=== PATIENT | male | born 1965 | race Caucasian/White ===

== ENCOUNTER → 2016-09-17 | Outpatient (CLI) | payer OTHER | LOC: ULTRA 07:48 | DX: K76.89 Other specified diseases of liver (principal); R14.0 Abdominal distension (gaseous) ==

== ENCOUNTER → 2016-10-29 | Outpatient (CLI) | payer BC | LOC: NUC 07:50 | DX: R10.11 Right upper quadrant pain (principal); R14.0 Abdominal distension (gaseous) ==

== ENCOUNTER → 2017-05-11 | Outpatient (CLI) | payer BC | LOC: RAD 10:07 | DX: R06.02 Shortness of breath (principal) ==

== ENCOUNTER → 2018-07-29 | Outpatient (CLI) | payer BC | LOC: RAD 11:20 | DX: R06.00 Dyspnea, unspecified (principal); R05 Cough ==

== ENCOUNTER → 2018-09-12 | Outpatient (CLI) | payer BC ==
--- NOTE | 2018-09-14 22:34 | SLE ---
[facility] [place] [address] POLYSOMNOGRAPHY STUDY Name: KEVEN BARKLEY Room #: REG [facility] M.R.#: [id number] Admission: 09/12/18 ������������������ Attend Phys: Miller Sotelo MD Discharge: ������������������ Date of : 65 Report #: [id number] THIS REPORT FOR: //name// CC: Miller Gomez MD DATE OF SERVICE: 09/12/2018 SLEEP STUDY ATTENDING PHYSICIAN: Dr. John Gomez. The patient is 53 years old who weighs 205 pounds with a BMI of 27.8. The patient has history of sleep apnea diagnosed in 2016. His AHI was 18 per hour. He has been on auto CPAP since then; however, he has been noted to have persistent daytime fatigue and somnolence. Review of the download data has revealed that his AHI has been less than 2. He averages about 5-1/2 hours of sleep. The patient was also taking Fioricet on a p.r.n. basis and Adderall. They were stopped few weeks prior to the study. The patient also underwent MSLT the next day. Results of the night sleep while on auto CPAP was discussed here. During the night of study, the patient spent 473 minutes in bed and slept for 360 minutes with a sleep efficiency of 76%. Sleep latency was 12 minutes with a REM latency of 162 minutes. Overall, sleep architecture showed normal stage 1 and stage 2 sleep, absent N3 sleep and increased REM sleep which was 33% of the total sleep time. During the night of the study, the patient slept on auto CPAP at a pressure of 5-20 cm of water. However, his pressure range during the night was 5-12. His AHI for the entire night was 1.5 per hour. REM AHI was 1 per hour and supine AHI was 0.9 per hour. EKG monitoring revealed an average heart rate of 61 beats per minute. No sustained arrhythmias observed. Maximum heart rate 93 beats per minute. PLMS were seen at an index of 6 per hour and 2 per hour caused EEG arousals. Nocturnal oximetry study revealed an average oxygen saturation of 97% with lowest of 82%. No clinically significant persistent desaturations of less than 89% were observed. Only 0.1 minutes were spent in oxygen saturation of less than 89%. IMPRESSION: 1. Sleep apnea diagnosed previously. [address] [address] POLYSOMNOGRAPHY STUDY Name: KEVEN BARKLEY Room #: REG DEV Samuel#: [id number] Admission: 09/12/18 ������������������ Attend Phys: Miller Sotelo MD Discharge: ������������������ Date of : 65 Report #: [id number] 2. No clinically significant periodic limb movements of sleep. 3. No clinically significant nocturnal hypoxia. 4. 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 RECOMMENDATIONS: 1. The patient's auto CPAP is effective in treating the patient's sleep apnea. The patient's AHI while sleeping on an auto CPAP was only 1.5 per hour. 2. The patient underwent MSLT the next day in order to rule out other etiologies of persistent daytime fatigue and hypersomnia. MSLT is reported separately. 3. Avoid [employer] depressants. The patient is on chronic Fioricet. The dose and frequency should be minimized if clinically possible. 4. Cautioned regarding driving until the patient's hypersomnia is resolved. ��������������������������������������������� <ELECTRONICALLY SIGNED> ���������������������������������������� By: Miller Sotelo MD ��������������������������������������������� 09/14/18 [id number] 1819 Miller Sotelo MD /nt
--- NOTE | 2018-09-14 22:34 | SLE ---
[facility] [place] [address] POLYSOMNOGRAPHY STUDY Name: KEVEN BARKLEY Room #: REG [facility]..#: [id number] Admission: 09/12/18 ������������������ Attend Phys: Miller Sotelo MD Discharge: ������������������ Date of : 65 Report #: [id number] THIS REPORT FOR: //name// CC: Miller Gomez DATE OF SERVICE: 09/13/2018 ATTENDING PHYSICIAN: Dr. John Gomez. The patient is 53 years old who weighs 205 pounds with a BMI of 27.8. The patient has a history of sleep apnea, and has been on auto CPAP; however, despite a recent download showing AHI of less than 2 per hour, the patient has persistent daytime fatigue. As a result, the patient was refered back for re-evaluation with sleep study while on auto-CPAP followed by MSLT. Patient slept well overnight while on home auto CPAP and it was effective. His AHI was only 1.5 per hour. The patient's sleep efficiency was 76%. The patient normally sleeps on an average of 5-1/2 hours. His urine drug screen was negative. He was kept off of his Adderall and fiorecet 2 weeks before the study. The patient underwent multiple sleep latency test the next day. Standard protocol was used. The patient was allowed 5 daytime nap opportunities at 2 hour intervals.Patient used CPAP during all naps. During the first nap, the patient's sleep latency was 3 minutes and 36 seconds. No REM sleep was observed. During the second nap, the patient's sleep latency was 2 minutes and 24 seconds and no REM sleep was observed. During the third nap opportunity, there was no sleep seen. During the fourth and the fifth nap opportunity, no sleep was observed. The patient's mean sleep latency for 5 naps was 13 minutes and 19 seconds. IMPRESSION: 1. No pathological hypersomnia seen during MSLT. Patient slept on his auto CPAP, the night before the multiple sleep latency test. The patient's mean sleep latency for 5 naps was 13 minutes and 19 seconds. RECOMMENDATIONS/ DISCUSSION 1. The patient's multiple sleep latency test does not suggest any coexisting diagnosis such as narcolepsy or idiopathic hypersomnia. 2.Patient's sleep efficiency was reduced the night before the MSLT and that can explain the patient's short sleep latency in the first 2 naps. Patients chronic insomnia may be a factor contributing to the patient's daytime fatigue. 3.Patient is also on chronic Fioricet and the doses and frequency should be [address] [address] POLYSOMNOGRAPHY STUDY Name: KEVEN BARKLEY Room #: REG DEV Samuel#: [id number] Admission: 09/12/18 ������������������ Attend Phys: Miller Sotelo MD Discharge: ������������������ Date of : 65 Report #: [id number] minimized.If used chronically, it can also contribute to daytime fatigue. 4.There is a subset of patients who despite effective use of CPAP remains sleepy and they can benefit from addition of stimulant medication. Currently, the patient is on Adderall and if this medicine is not effective, then the patient should be tried a trial of Nuvigil or Provigil. 5.Caution regarding driving until the patient's hypersomnia is resolved. ��������������������������������������������� <ELECTRONICALLY SIGNED> ���������������������������������������� By: Miller Sotelo MD ��������������������������������������������� 09/14/18 2234 1759 1823 Miller Sotelo MD /nt
== END ==
LOC: SLEEPLAB 11:17
DX: G47.33 Obstructive sleep apnea (adult) (pediatric) (principal); Z99.89 Dependence on other enabling machines and devices

== ENCOUNTER → 2018-09-13 | Outpatient (CLI) | payer BC ==
[2018-09-13 15:33] LABS: AMP/METHAMP Negative (Negative); BARBITURATES Negative (Negative); BENZODIAZEPINES Negative (Negative); COCAINE Negative (Negative); METHADONE Negative (Negative); OPIATES Negative (Negative); PCP Negative (Negative)
== END ==
LOC: SLEEPLAB 08:00
PROVIDERS: Internal Medicine Critical Care Medicine
DX: G47.33 Obstructive sleep apnea (adult) (pediatric) (principal); J44.9 Chronic obstructive pulmonary disease, unspecified; R53.83 Other fatigue; R40.0 Somnolence; Z99.89 Dependence on other enabling machines and devices

== ENCOUNTER → 2018-11-09 | Outpatient (CLI) | payer OTHER | LOC: CAT 16:30 | DX: Z13.6 Encounter for screening for cardiovascular disorders (principal); E78.00 Pure hypercholesterolemia, unspecified; I25.10 Atherosclerotic heart disease of native coronary artery without angina pectoris ==

== ENCOUNTER → 2019-10-10 | Outpatient (CLI) | payer BC | LOC: LAB 14:31 | PROVIDERS: ATTEND Internal Medicine Pulmonary Disease | DX: Z03.818 Encounter for observation for suspected exposure to other biological agents ruled out (principal) ==

== ENCOUNTER → 2019-10-17 | Outpatient (CLI) | payer BC | LOC: CV 10:00 → SJCVCIMAG 10:00 → CV 12:19 | PROVIDERS: ATTEND Internal Medicine Cardiovascular Disease | DX: I51.7 Cardiomegaly (principal); G47.33 Obstructive sleep apnea (adult) (pediatric) ==